=== PATIENT | female | born 1950 | race Caucasian/White ===

== ENCOUNTER 2017-06-14 10:02 | Observation (INO) | payer MEDICARE, OTHER ==
--- NOTE | 2017-06-14 11:15 | ED ---
Upper Extremity Pain - HPI Summary HPI Summary: 67 female presents with complaints of left arm pain, redness, swelling, and warmth of left anterior forearm that began Wednesday and has worsened since. Patient states she did do some heavy lifting and activity on , states her arm was aching however wednesday it began to swell, become painful and redness. Patient was at [facility] where she had an US that was negative for DVT and they sent her here. Patient denies known injury or trauma. States she is concerned for acute compartment syndrome as she had it in her right arm in the past from a cast and scar tissue. States the pain increases with external rotation of her forearm and with extension. Has full strength and denies weakness. Has been icing constantly, taking aleve and elevating. She also tried Benadryl. Has had no improvement from at home treatment. Denies getting bite by anything. No fever/chills or other complaints at this time. Pain has really increased in 24 hours. Denies numbness/tingling - History of Current Complaint Chief Complaint: EDExtremityUpper Stated Complaint: ARM INJURY Time Seen by Provider: 06/14/17 10:24 Hx Obtained From: Patient Mechanism Of Injury: Unknown Onset/Duration: Started Days Ago, Still Present, Worse Since Timing: Constant Severity Initially: Moderate Severity Currently: Severe Pain Location: Forearm - left Character: Aching, Stiffness - firm Aggravating Factor(s): Extension, Internal/External Rotation - external rotation Alleviating Factor(s): Nothing Associated Signs & Symptoms: Positive: Swelling, Redness. Negative: Weakness, Numbness/Tingling, Neck Pain, Nausea Related History: Dominant Hand Right - Risk Factors DVT Risk Factors: Negative Septic Arthritis Risk Factor: Negative - Allergies/Home Medications Allergies/Adverse Reactions: Allergies Allergy/AdvReac Type Severity Reaction Status Date / Time Bee Venom Allergy Severe Anaphylatic Verified 03/02/14 10:07 Shock Conjugated Estrogens Allergy Severe Rash Verified 03/02/14 10:07 [From Premarin] Meperidine [From Demerol HCl] Allergy Severe Hives Verified 03/02/14 10:07 Sulfa Antibiotics Allergy Severe Rash Verified 03/02/14 10:07 Cyclobenzaprine Allergy Difficulty Verified 06/18/14 13:54 [From Flexeril] Breathing Acetaminophen [From Percocet] AdvReac Hyperactivi Verified 03/02/14 10:06 ty Oxycodone [From Percocet] AdvReac Hyperactivi Verified 03/02/14 10:06 ty PMH/Surg Hx/FS Hx/Imm Hx Endocrine/Hematology History: Reports: Hx Thyroid Disease Denies: Hx Diabetes Cardiovascular History: Reports: Hx Valvular Heart Disease - MVP Denies: Hx Hypertension, Hx Pacemaker/ICD Respiratory History: Reports: Hx Asthma, Other Respiratory Problems/Disorders - pneumothorax history Sensory History: Denies: Hx Hearing Aid Neurological History: Comment Only: Other Neuro Impairments/Disorders - HX OF COMPRESSION FX T12/L1 /L2 Psychiatric History: Reports: Hx Post Traumatic Stress Disorder Denies: Hx Panic Disorder - Cancer History Cancer Type, 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 Hx Chemotherapy: No Hx Radiation Therapy: No - Surgical History Surgery Procedure, Year, and Place: OVARIAN CYST/HYSTERECTOMY/LEFT MEDIAL MALEOUS/ RT FOREARM NERVE DECOMPRESSION/CHEST TUBE LEFT LUNG/ CYSTOCELE AND RECROCYLE - Immunization History Immunizations Up to Date: Yes Infectious Disease History: Denies: Traveled Outside the [place] in Last 30 Days - Family History Known Family History: Positive: None - Social History Alcohol Use: Daily Alcohol Amount: 4x/week - 1-2 glasses of beer Substance Use Type: Reports: None Smoking Status (MU): Never Smoked Tobacco Review of Systems Constitutional: Negative Cardiovascular: Negative Respiratory: Negative Gastrointestinal: Negative Positive: Arthralgia, Myalgia, Edema - left forearm Positive: Other - swelling, warmth, redness of left lower forearm Neurological: Negative All Other Systems Reviewed And Are Negative: Yes Physical Exam Triage Information Reviewed: Yes Vital Signs On Initial Exam: Initial Vitals Temp Pulse Resp BP Pulse Ox 98.7 F 73 20 151/87 96 06/14/17 10:06 06/14/17 10:06 06/14/17 10:06 06/14/17 10:06 06/14/17 10:06 Completion Of Physical Exam Limited Due To: Dementia Appearance: Positive: Well-Appearing, No Pain Distress, Well-Nourished Skin: Positive: Warm, Skin Color Reflects Adequate Perfusion, Dry, Erythema @ - edema, warmth and pain at left forearm. significantly firm on palpation. Head/Face: Positive: Normal Head/Face Inspection Eyes: Positive: Conjunctiva Clear ENT: Positive: Hearing grossly normal Neck: Positive: Supple, Nontender, No Lymphadenopathy Respiratory/Lung Sounds: Positive: Clear to Auscultation, Breath Sounds Present. Negative: Rales, Rhonchi, Wheezes Cardiovascular: Positive: Normal, RRR, Pulses are Symmetrical in both Upper and Lower Extremities - 2+. Negative: Murmur, Rub Abdomen Description: Positive: Nontender, Soft Bowel Sounds: Positive: Present Musculoskeletal: Positive: Normal, Strength/ROM Intact - with pain but able, Pain @ - left forearm, on palpation and with extension and external rotation, Edema Left - left anterior forearm, significant lump/bump and firmess on palpation, Other - obvious palpated firm area mid anterior forearm, non fluctuant and does not appear to be an abscess. Negative: Limited @, Interruption @ Neurological: Positive: Normal, Sensory/Motor Intact - sensation intact, no weakness, tingling, or numbness, Alert, Oriented to Person Place, Time, CN Intact II-III, Reflexes Intact, NV Bundle Intact Distally, Normal Gait Psychiatric: Positive: Affect/Mood Appropriate - [place] Coma Scale Coma Scale Total: 15 Diagnostics - Vital Signs Vital Signs Temp Pulse Resp BP Pulse Ox 06/14/17 10:37 66 98 06/14/17 10:36 97.1 F 67 16 147/63 98 06/14/17 10:35 147/63 06/14/17 10:06 98.7 F 73 20 151/87 96 - Laboratory Result Diagrams: 06/14/17 11:25 06/14/17 11:25 Lab Statement: Any lab studies that have been ordered have been reviewed, and results considered in the medical decision making process. - CT left forearm CT Interpretation: Positive (See Comments) - Subcutaneous edema and edema and fluid surrounding the muscle is noted. I cannot totally exclude a fluid collection or fasciitis. Correlation with ultrasound of the forearm may be helpful to exclude a fluid collection. CT Interpretation Completed By: Radiologist - Ultrasound No standard instances Ultrasound Interpretation: Positive (See Comments) - Nonspecific fusiform thickening and interstitial edema most closely correlating with the brachioradialis muscle. Consider cellulitis and myositis as well as muscle strain/low-grade partial tear. Correlate with clinical history and laboratory data. Doppler US: subcutaneous edema, no DVT. Ultrasound Interpretation Completed By: Radiologist Re-Evaluation - Re-Evaluation First Eval Re-Evaluation Time: 14:35 Change: Improved - had some relief after toradol. aware and updated on findings on labs and imaging. waiting to hear from Dr Chandler Course/Dx - Course Course Of Treatment: given toradol for pain management, had some relief. CT of forearm obtained. CBC/CMP and CRP/Sed obtained and unremarkable. No other symptoms or complaints at this time. Had U/S done at [facility], obtained copy via CD and was negative for DVT per report. Obtained soft tissue U/S to correlate with CT. Due to findings on US and CT spoke with Dr Chandler who stated he will see her in the ED. Dr Chandler checked pressures in arm in ED. - Diagnoses Differential Diagnosis/HQI/PQRI: Positive: Arthritis, Contusion, Fracture ( Closed), Hematoma, Strain, Sprain, Other - acute compartment syndrome Provider Diagnoses: Compartment syndrome of left upper extremity - Physician Notifications Discussed Care of Patient With: Dr Chandler Time Discussed With Above Provider: 14:35 Instructed by Provider To: MD Will See In ED - sent to OR after having pressure checked at 60 Discharge - Discharge Plan Condition: Stable Disposition: ADMITTED TO [facility]
--- NOTE | 2017-06-14 12:22 | RAD ---
Indication: Evaluate acute compartment syndrome. CT of the left upper extremity was performed without IV contrast. Subcutaneous edema and edema surrounding the fascial planes is noted in the region of the forearm. This may represent inflammatory process although fasciitis cannot BE excluded. No definable fluid collections are noted. There is suggestion of ill-defined fluid collection in the right lateral forearm. Correlation with sonogram may be helpful. IMPRESSION: Subcutaneous edema and edema and fluid surrounding the muscle is noted. I cannot totally exclude a fluid collection or fasciitis. Correlation with ultrasound of the forearm may be helpful to exclude a fluid collection.
[2017-06-14 12:37] LABS: Hematocrit 42 % (35-47); Hemoglobin 14.2 g/dl (12.0-16.0); Mean Corpuscular HGB Conc 34 g/dl (31-36); Mean Corpuscular Hemoglobin 30 pg (27-31); Mean Corpuscular Volume 91 fL (80-97); Mean Platelet Volume 8 um3 (7.4-10.4); Red Blood Count 4.68 10^6/ul (4.0-5.4); Red Cell Distribution Width 15 % (10.5-15)
[2017-06-14] MEDS ORDERED: Ketorolac INJ* 30 MG/ML 1 ML VIAL IM ONE (12:47)
[2017-06-14 13:02] LABS: Albumin 4.2 g/dL (3.2-5.2); BUN/Creatinine Ratio 11.6 (8-20); Calcium 9.5 mg/dL (8.6-10.3); EGFR African American 75.2 (>60); EGFR Non-African American 58.5 (>60); Globulin 2.6 g/dL (2-4); Potassium 4.1 mmol/L (3.5-5.0); Total Bilirubin 0.7 mg/dL (0.2-1.0); Total Protein 6.8 g/dL (6.4-8.9)
[2017-06-14 13:46] LABS: C Reactive Protein 3.67 mg/L (< 5.00)
--- NOTE | 2017-06-14 14:07 | RAD ---
Indication: LEFT arm /forearm swelling and redness Comparison: June 14, 2017 CT Technique: Ultrasound of the volar aspect of the LEFT mid forearm. Limited ultrasound of the contralateral forearm for comparison. Report: Subcutaneous edema and fusiform enlargement and interstitial edema within the brachioradialis muscle. No discrete torn or retracted fibers evident. No loculated subcutaneous tissue plane or muscular compartment fluid collection evident. IMPRESSION: Nonspecific fusiform thickening and interstitial edema most closely correlating with the brachioradialis muscle. Consider cellulitis and myositis as well as muscle strain/low-grade partial tear. Correlate with clinical history and laboratory data.
[2017-06-14] MEDS ORDERED: HYDROmorphone TAB* 2 MG PO PRN (16:20)
[2017-06-14] MEDS ORDERED: HYDROmorphone* 2 MG/ML 1 ML SYR IV SLOW PU PRN (16:22)
[2017-06-14] MEDS ORDERED: Clindamycin 600 MG IVPREMIX(* 600 MG/50 ML SDV ONE (16:53)
[2017-06-14] MEDS ORDERED: Lidocaine 2% PF * 5 ML VIAL ONE (17:00)
[2017-06-14] MEDS ORDERED: Propofol* 10 MG/ML 20 ML BTL IV PUSH ONE (17:00)
[2017-06-14] MEDS ORDERED: KETAMINE HCL* 50 MG/ML 10 ML VIAL ONE (17:00)
[2017-06-14] MEDS ORDERED: Midazolam* 1 MG/ML 5 ML VIAL (5 MG) ONE (17:00)
[2017-06-14] MEDS ORDERED: Ondansetron INJ* 2 MG/ML VIAL ONE ×2 (17:00→18:42)
[2017-06-14] MEDS ORDERED: Dexamethasone IV* 4 MG/ML 1 ML (4 MG) ONE (17:00)
[2017-06-14] MEDS ORDERED: HYDROmorphone* 1 MG/ML 1 ML SYR ONE ×2 (17:00→18:42)
[2017-06-14] MEDS ORDERED: Bupivacaine 0.5% SDV PF* 30 ML VIAL ONE (17:39)
[2017-06-14] MEDS ORDERED: EPHEDrine (Pressors)* 50 MG/ML VIAL ONE (17:44)
[2017-06-14] MEDS ORDERED: diPHENhydraMINE IV* 50 MG/ML 1 ml VIAL (BENADRYL) IV PRN (18:19)
[2017-06-14] MEDS ORDERED: oxyCODONE/Acetamin 5/325 MG* TAB PO PRN ×2 (18:19)
[2017-06-14] MEDS ORDERED: Morphine INJ* 4 MG/ML 1 ML SYRINGE IV PRN (18:19)
[2017-06-14] MEDS ORDERED: Acetaminophen TAB* 325 MG PO PRN (18:19)
[2017-06-14] MEDS ORDERED: (Albuterol Sulfate [Proair Respiclick] 1 PUFF) INH PRN (18:23)
[2017-06-14] MEDS ORDERED: ALBUTEROL SULFATE 108 MCG IN PRN (18:23)
[2017-06-14] MEDS ORDERED: Ondansetron INJ* 2 MG/ML VIAL IV PRN (18:31)
--- NOTE | 2017-06-14 18:35 | HP ---
ADMISSION HISTORY AND PHYSICAL: DATE OF ADMISSION: 06/14/17 HISTORY OF PRESENT ILLNESS: Rochelle was seen in the emergency room today in consultation at 1600. 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 Without a history of direct trauma to the left forearm nor penetration injury, she has had increased pain and swollen there for the last 4 days. Particular redness and swelling is increasing today. She was seen earlier at an outside of the hospital with an ultrasound negative for blood clot and referred here where a CT scan had shown some myositis and edema in the forearm. There is a vague history in the past of a possible compartment syndrome in the right forearm as a complication of some surgery and casting. She has some mild loss of function in the median nerve distribution in the right arm and although she is right hand dominant, she uses her left hand for forceful activities. She has not had any direct trauma to the left forearm, no penetrating injury and no history of any bug bites or rashes. She has not had loss of sensation in the hand, but has significant pain by her account with supination. Pain only 2/10 at rest. Rochelle is otherwise a healthy 67-year-old woman. She has had no history of diabetes, has had no recent fevers, chills. No shortness of breath, no abdominal distress, no diarrhea. Neurologically, she has no depression or anxiety. She is not a smoker. Her admission blood work shows her to have a white blood count of 6.0. She is afebrile of 98.7 here on admission, blood pressure 147/63. She received some ketorolac here in the hospital PHYSICAL EXAMINATION The patient is lying in her cot without any acute distress. The left forearm is puffy and erythematous basically from the wrist to the antecubital fossa. Particularly, the radial aspect of the mid forearm is puffy and semirigid to palpation. There is diffuse erythremia, mild tenderness to palpation. She has increased pain with passive supination. There is free range of motion of the elbow and wrist. She has a negative Tinel's at the carpal tunnel. She has a positive radial pulse and intact sensation to all 3 main dermatomes of the left hand. There is no pain with passive extension of the wrist nor passive extension of the fingers. With her consent and after timeout, we gave her a small amount of lidocaine in the skin of the left mid forearm and then used the [place] pressure monitor to check her compartment pressure, which was around 60. These compared to a simultaneous systolic of 135. PAST SURGICAL HISTORY: She has had no previous surgeries other than right forearm. CURRENT MEDICATIONS: Include: 1. Synthroid. 2. Potassium. 3. Zafirlukast. ALLERGIES: She has allergies to SULFA, PERCOCET, DEMEROL. IMPRESSION: The patient with cellulitis, left forearm, swelling and a positive Little pressure monitor for elevated forearm compartment pressures. I have alerted our hand surgery team to evaluated the patient. She will remain n.p.o. [id number]/[facility] #: [id number] [facility] SYSTEMJoao
[2017-06-14] MEDS: HYDROmorphone* 1 MG/ML 1 ML SYR IV PRN ×5 (18:44→19:33)
[2017-06-14] MEDS: Clindamycin 600 MG IVPREMIX(* 600 MG/50 ML SDV IV SCH (20:22)
[2017-06-14] MEDS: Ondansetron INJ* 2 MG/ML VIAL IV PRN (21:49)
[2017-06-14] MEDS: Docusate CAP* 100 MG PO SCH (22:06)
[2017-06-15] MEDS: Clindamycin 600 MG IVPREMIX(* 600 MG/50 ML SDV IV SCH ×3 (02:26→11:40)
[2017-06-15 05:38] LABS: Hematocrit 36 % (35-47)
[2017-06-15] MEDS ORDERED: Levothyroxine TAB* 25 MCG TAB PO SCH (06:00)
[2017-06-15] MEDS: Ondansetron INJ* 2 MG/ML VIAL IV PRN (07:29)
[2017-06-15] MEDS: Docusate CAP* 100 MG PO SCH (08:32)
[2017-06-15] MEDS ORDERED: Montelukast Sodium TAB* 5 MG PO SCH (09:00)
[2017-06-15] MEDS ORDERED: Potassium Chlor TAB* 10 MEQ TAB.ER PO SCH (09:00)
[2017-06-15] MEDS ORDERED: Vitamin THERAPEUTIC TAB PO SCH (09:00)
[2017-06-15 12:56] VITALS: BP 133/53
--- NOTE | 2017-06-15 16:08 | OP ---
DATE OF OPERATION: 06/14/17 - ROOM #339 DATE OF : 48 SURGEON: Val Tsang MD MEDICAID PLAN COMPLIANCE DIRECTOR: ANDREWS Villar ANESTHESIOLOGIST: Isreal Mckenna MD ANESTHESIA: General. PRE-OP DIAGNOSIS: Forearm compartment syndrome on the left. POST-OP DIAGNOSIS: Forearm compartment syndrome on the left. OPERATIVE PROCEDURE: Left forearm compartment release. ESTIMATED BLOOD LOSS: Zero. TOURNIQUET TIME: About 25 minutes. INDICATIONS FOR PROCEDURE: Rochelle is a 67-year-old woman who developed pain, swelling, and redness in her left forearm over the last few days, which has gradually gotten worse. She has history of compartment syndrome on the right and she states this feels similar, but not as bad. She was seen in the emergency room by Dr. Chandler. [place] compartment pressure monitor measured 85 mmHg in the affected muscle. She presents for forearm compartment release on the left. DESCRIPTION OF PROCEDURE: The patient was brought to the operating room, was given a general anesthetic and placed in the supine position on the operating table with the tourniquet around her left upper arm. Skin of her left upper extremity was prepped and draped in the usual sterile fashion. The upper extremity was exsanguinated and the tourniquet elevated to 250 mmHg. A longitudinal incision was made over the area of firm muscle dissected bluntly through the subcutaneous tissue down to the superficial compartment. This was her extensor supinator compartment. The superficial fascia was incised longitudinally and there was very pale and friable muscle. As the compartment was further released, the muscle did pink up some. We then dissected down to the deep extensor compartment and released it as well. The muscle in this compartment was not firm and was not pale. The wound was copiously irrigated with saline and cultures were obtained, although there was no purulent drainage. The skin was then loosely reapproximated with kristie on a vessel loop and the wound was dressed with Xeroform, 4x4, ABD, Webril, and an Addison wrap. The patient tolerated the procedure well, was brought to the recovery room in good condition. [id number]/[facility] #: [id number] MTDD
--- NOTE | 2017-06-18 10:57 | DS ---
CC: Dr. Tsang. DISCHARGE SUMMARY: DATE OF ADMISSION: 06/14/17 DATE OF DISCHARGE: 06/15/17 CHIEF COMPLAINT: Left forearm pain. HISTORY OF PRESENT ILLNESS: Rochelle is a 67-year-old woman who developed a compartment syndrome of the extensor compartment of her left forearm. She was taken to the operating room urgently for comp artment release. The next day she had marked improvement in her symptoms. Her wound had a lot of b loody drainage that her bandage was changed prior to discharge. She was treated also for cellulitis with IV clindamycin and the cellulitis had improved markedly, so she was switched to an oral clinda mycin for discharge. She was taking oral pain medication, tolerating a regular diet. She was instr ucted to change her bandage once a day and follow up with Dr. Tsang in 2 days. [id number]/[facility] #: [id number]
== END 2017-06-15 13:40 | disposition home or self-care (01) ==
LOC: ED 10:02 → OR 16:35 → SSU 19:43
PROVIDERS: ADMIT Orthopaedic Surgery; ATTEND Orthopaedic Surgery
DX: T79.A12A Traumatic compartment syndrome of left upper extremity, initial encounter (principal); M60.9 Myositis, unspecified; R60.9 Edema, unspecified; M79.89 Other specified soft tissue disorders; E03.9 Hypothyroidism, unspecified; I10 Essential (primary) hypertension; R00.2 Palpitations; J45.909 Unspecified asthma, uncomplicated
CPT/HCPCS: 36415; 80053; 85014; 85018; 85025; 85652; 86140; 87070; 87073; 87205; 96372; 96375; A9270-GY; G0378; J1100; J1170; J1885; J2250; J2270; J2405; J2704

== ENCOUNTER 2017-06-17 11:31 | Day surgery (SDC) | payer MEDICARE, OTHER ==
[2017-06-17] MEDS ORDERED: Buffered Lidocaine 0.9% SYRIN* 5 ML/SYR SYRINGE INTRADERM ONE (12:07)
[2017-06-17] MEDS ORDERED: Acetaminophen TAB* 325 MG PO PRN (12:09)
[2017-06-17] MEDS ORDERED: Bupivacaine 0.5% SDV PF* 30 ML VIAL ONE (12:09)
[2017-06-17] MEDS ORDERED: fentaNYL* 50 MCG/ML 2 ML VIAL (100 MCG VIAL) IV PRN (12:09)
[2017-06-17] MEDS ORDERED: Ondansetron INJ* 2 MG/ML VIAL IV PRN (12:09)
[2017-06-17] MEDS ORDERED: Levalbuterol 0.63MG/3ML NEB INH PRN (12:09)
[2017-06-17] MEDS ORDERED: DiMENhydriNATE IV* 50 MG/ML VIAL IV PUSH PRN (12:09)
[2017-06-17] MEDS ORDERED: Clindamycin 900 MG IVPREMIX(* 900 MG/50 ML SDV IV ONE (12:18)
[2017-06-17] MEDS ORDERED: Famotidine IV* 10 MG/ML 2 ML (20 mg) ONE (12:20)
[2017-06-17] MEDS ORDERED: KETAMINE HCL* 50 MG/ML 10 ML VIAL ONE (12:25)
[2017-06-17] MEDS ORDERED: Midazolam* 1 MG/ML 5 ML VIAL (5 MG) ONE (12:25)
[2017-06-17] MEDS ORDERED: Ketorolac INJ* 30 MG/ML 1 ML VIAL ONE (12:41)
[2017-06-17] MEDS ORDERED: Propofol* 10 MG/ML 20 ML BTL IV PUSH ONE (12:41)
[2017-06-17] MEDS ORDERED: Ondansetron INJ* 2 MG/ML VIAL ONE (12:41)
[2017-06-17] MEDS ORDERED: Lidocaine 2% PF * 5 ML VIAL ONE (12:41)
[2017-06-17] MEDS ORDERED: diPHENhydraMINE IV* 50 MG/ML 1 ml VIAL (BENADRYL) ONE (12:41)
[2017-06-17] MEDS ORDERED: Dexamethasone IV* 4 MG/ML 1 ML (4 MG) ONE (12:41)
[2017-06-17] MEDS ORDERED: HYDROmorphone* 1 MG/ML 1 ML SYR ONE (13:02)
[2017-06-17] MEDS ORDERED: Acetaminophen TAB* 325 MG ONE (13:45)
[2017-06-17 13:53] VITALS: BP 164/83
--- NOTE | 2017-06-18 10:08 | OP ---
CC: Val Tsang MD OPERATIVE REPORT: DATE OF OPERATION: 06/17/17 DATE OF : 48 SURGEON: Val Tsang MD APPLIANCE SERVICE TECHNICIAN: ANDREWS Crenshaw ANESTHESIA: General. PRE-OP DIAGNOSIS: Left forearm pain, status post compartment release. POST-OP DIAGNOSIS: Large hematoma in the left forearm with necrotic muscle. OPERATIVE PROCEDURE: Left forearm irrigation and debridement and evacuation of hematoma. ESTIMATED BLOOD LOSS: Zero. TOURNIQUET TIME: About 20 minutes. INDICATION FOR PROCEDURE: Rochelle is a 67-year-old woman who developed an isolated compartment synd tim over extensor digitorum muscle. She had a compartment release three days ago. She also had ce llulitis. This was treated with an IV antibiotic and subsequently an oral antibiotic. She was doin g well until yesterday afternoon. She had an increase in pain and swelling and she was seen in [facility] this morning with increase in firmness around her incision. There has been minimal drainage ov er the past 24 hours. She still has no neurovascular symptoms, but increased pain with range of mot ion, especially in supination. On exam, she has a healing incision. There is no sign of infection. The cellulitis has resolved. There is no erythema. There is a lot of ecchymosis. She can fully flex and extend her fingers. He r neurovascular function is intact. There is no drainage from the wound, but there is a lot of firmn ess around the incision. Impression: Left forearm compartment syndrome with increasing symptom aft er a release. DESCRIPTION OF PROCEDURE: The patient was brought to the operating room, was given a general anesth etic and placed in the supine position on the operating table with the tourniquet around her left up per arm. The skin over the left upper extremity was prepped and draped in the usual sterile fashion . The hand and forearm were exsanguinated and the tourniquet elevated to 250 mmHg. The kristie and the retention sutures were removed and there was a very large hematoma in the wound. This was compl etely evacuated and that resolved all of the firmness in the forearm. There was some necrotic muscle and this was completely debrided. The radial nerve was located and was in good condition. We made sure that the deep and superficial extensor compartments were completely released. The remaining m uscle looked very good, was pink and contractile. There was no sign of infection. There was no pur ulent drainage. The tourniquet was released. There was no bleeding. The wound was closed very loo sely with 4-0 nylon suture over a Terrence drain and dressed with Xeroform, 4 x 4 and ABD. The patie nt tolerated the procedure well and was brought to the recovery room in good condition after wakenin g from general anesthesia. [id number]/[facility] #: [id number]
== END 2017-06-17 14:06 | disposition home or self-care (01) ==
LOC: OREAST 11:31
PROVIDERS: ATTEND Orthopaedic Surgery
DX: M96.830 Postprocedural hemorrhage of a musculoskeletal structure following a musculoskeletal system procedure (principal); Y83.8 Other surgical procedures as the cause of abnormal reaction of the patient, or of later complication, without mention of misadventure at the time of the procedure; Y92.9 Unspecified place or not applicable; I10 Essential (primary) hypertension; E03.9 Hypothyroidism, unspecified
CPT/HCPCS: 36415; 85610; 85730; 88305; A9270-GY; J1100; J1170; J1200; J1885; J2250; J2405; J2704